=== PATIENT | male | born 1995 | race Caucasian/White ===

== ENCOUNTER 2017-04-02 22:17 | Emergency (ER) | payer BC ==
--- NOTE | ~2017-04-02 | ER ---
PATIENT'S NAME: LEONIDES QUILES [facility] AGE: 21 Y [address] ROOM: [place] [id number] LOCATION: [facility] ADMIT DATE: 04/02/2017 ER/Outpatient Report DISCHARGE DATE: 04/02/2017 FAMILY PHYSICIAN: Physician, Unknown ATTENDING PHYSICIAN: Tamica Leon Time of Arrival: 2217 hours. Time of Evaluation: 2226 hours. IDENTIFICATION: A 21-year-old male. CHIEF COMPLAINT: Football injury. HISTORY OF PRESENT ILLNESS: The patient is a 21-year-old male from [place], [place], who was here, playing football against [employer]. He sustained an injury with a clinical left clavicle fracture. The team physician, Dr. Manisha Jones, evaluated him, requested that he had an x-ray and some pain management, so that he could return home. He did not hit his head. No loss of consciousness. He denies neck pain. No back pain. No other problems or concerns. ALLERGIES: NO KNOWN DRUG ALLERGIES. CURRENT MEDICATIONS: Denies. MEDICAL PROBLEMS: Denies prior surgeries or hospitalizations. SOCIAL HISTORY: The patient lives in [place], [place]. He is a student at [employer] and does play football. He is a senior. Tobacco use, denies. Alcohol use, denies. Drug use, denies. REVIEW OF SYSTEMS: All systems reviewed and negative other than what is noted in the HPI. PHYSICAL EXAMINATION: VITAL SIGNS: 6 feet and 3 inches, weight 94.2 kg, blood pressure 136/77, pulse 96, respirations 18, temperature 98.3, and saturations 94% on room air. GENERAL: A 21-year-old male in mild distress. HEENT: Head: Normocephalic. Eyes: Pupils are equal, round, and reactive to PATIENT'S NAME: LEONIDES QUILES [facility] AGE: 21 Y [address] ROOM: [place] [address] LOCATION: [facility] ADMIT DATE: 04/02/2017 ER/Outpatient Report DISCHARGE DATE: 04/02/2017 FAMILY PHYSICIAN: Physician, Unknown ATTENDING PHYSICIAN: Tamica Leon light and accommodation. Extraocular movements intact. Nose: Mucosa pink. No lesions. Mouth: No lesions. Pharynx benign. NECK: Supple. No nuchal rigidity. No tenderness to palpation of the cervical spine. LUNGS: Clear to auscultation. Breath sounds are equal. HEART: Regular rate and rhythm. ABDOMEN: Soft, nondistended, and nontender. SKIN: [place], warm, and dry. The patient is tender to palpation over his left clavicle with the palpable deformity. LABORATORY DATA AND X-RAYS: X-ray reveals a displaced fracture of the distal 1/3 of the clavicle. IMPRESSION: Left clavicle fracture. PLAN: The patient was given 2 Carson p.o. here in the emergency room. A script for Carson 5/325 one to two p.o. q.4 to 6 hours p.r.n. for pain, dispensed 20 with 0 refills. Clavicle fracture handout, sling, ice, and follow up with Ortho in 1 to 4 days. Follow up sooner if any problems or concerns. Copies of the x- rays were made on the CD for them to take with them. The patient and his parents understand and agree, and all questions have been answered. TAMICA LEON MD CAR/tj /[id number] d: 04/03/173 t: 04/07/17 0650, OUTPATIENT REPORT
== END 2017-04-02 23:02 | disposition disaster alternative care site (69) ==
LOC: GACC 22:17
DX: S42.022A Displaced fracture of shaft of left clavicle, initial encounter for closed fracture (principal); Y93.61 Activity, american tackle football